=== PATIENT | female | born 1935 | race Caucasian/White ===

== ENCOUNTER 2021-11-17 10:10 | Outpatient (CLI) | payer MEDICARE ==
[~2021-11-17 10:10] MED LIST: AMLO10TA13 PO; ATOR20TA66 PO; iohexol 350MG/ML 100ml bottle IV ONE
[2021-11-17 11:11] LABS: BASOPHILS % (AUTO) 0.8 % (0-1); EOSINOPHILS # (AUTO) 0.1 X10'3 (0-0.9); EOSINOPHILS % (AUTO) 1.3 % (0-6); HEMATOCRIT 30.5 % (35.0-45.0); LYMPHOCYTES # (AUTO) 0.7 X10'3 (1.1-4.8); LYMPHOCYTES % (AUTO) 15.2 % (21-51); MEAN CORPUSCULAR HGB CONC 32.8 g/dL (33.0-36.5); MEAN CORPUSCULAR VOLUME 79.3 FL (78-98); MEAN PLATELET VOLUME 8.4 FL (7.4-10.4); MONOCYTES # (AUTO) 0.4 X10'3 (0-0.9); NEUTROPHILS # (AUTO) 3.4 X10'3 (1.8-7.7); NEUTROPHILS % (AUTO) 73.7 % (42-75); PLATELET COUNT 216 X10'3 (140-440); RED BLOOD COUNT 3.85 X10'6 (4.20-5.60); WHITE BLOOD COUNT 4.6 X10'3 (4.5-11.0)
[2021-11-17 11:22] LABS: APTT 28 SECONDS (22-32)
[2021-11-17 11:24] LABS: ALANINE AMINOTRANSFERASE 16 U/L (12-78); ALBUMIN 3.6 G/DL (3.4-5.0); ALBUMIN/GLOBULIN RATIO 1.1 (1.1-1.5); ALKALINE PHOSPHATASE 60 IU/L (46-116); ANION GAP 9 (8-16); ASPARTATE AMINO TRANSFERASE 15 U/L (10-37); BILIRUBIN,TOTAL 0.4 MG/DL (0.1-1.0); BLOOD UREA NITROGEN 17 MG/DL (7-18); BUN/CREATININE RATIO 25.8 (6.6-38.0); CALCIUM 8.8 MG/DL (8.5-10.1); CHLORIDE 101 MMOL/L (99-107); CREATININE 0.66 MG/DL (0.40-0.90); GLUCOSE 105 MG/DL (70-104); POTASSIUM 4.1 MMOL/L (3.5-5.1); SODIUM 136 MMOL/L (135-145); TOTAL CARBON DIOXIDE 26.1 MMOL/L (24-32); TOTAL PROTEIN 6.9 G/DL (6.4-8.2); eGFR 85 ML/MIN
== END 2021-11-17 23:59 | disposition home or self-care (01) ==
LOC: RAD 10:10
PROVIDERS: ATTEND Internal Medicine Cardiovascular Disease
DX: Z01.818 Encounter for other preprocedural examination (principal); J98.11 Atelectasis; K80.20 Calculus of gallbladder without cholecystitis without obstruction; I70.0 Atherosclerosis of aorta; I25.10 Atherosclerotic heart disease of native coronary artery without angina pectoris; I70.1 Atherosclerosis of renal artery; I70.8 Atherosclerosis of other arteries; M43.8X5 Other specified deforming dorsopathies, thoracolumbar region; M53.3 Sacrococcygeal disorders, not elsewhere classified; I35.0 Nonrheumatic aortic (valve) stenosis; I65.29 Occlusion and stenosis of unspecified carotid artery; Z79.899 Other long term (current) drug therapy
CPT/HCPCS: 36415; 71046; 71275; 74174; 80053; 85025; 85610; 85730; 87811; 94010; 94727; 94729; J3490; Q9967

== ENCOUNTER 2022-01-04 06:25 | Inpatient (IN) | payer MEDICARE ==
[2021-12-27 15:03] LABS: BASOPHILS % (AUTO) 0.8 % (0-1); LYMPHOCYTES # (AUTO) 0.9 X10'3 (1.1-4.8); LYMPHOCYTES % (AUTO) 19.3 % (21-51); MEAN CORPUSCULAR HEMOGLOBIN 26.7 PG (27.0-31.0); MEAN CORPUSCULAR HGB CONC 33.8 g/dL (33.0-36.5); MEAN CORPUSCULAR VOLUME 79.1 FL (78-98); MEAN PLATELET VOLUME 7.9 FL (7.4-10.4); MONOCYTES # (AUTO) 0.4 X10'3 (0-0.9); MONOCYTES % (AUTO) 8.6 % (2-12); NEUTROPHILS # (AUTO) 3.2 X10'3 (1.8-7.7); NEUTROPHILS % (AUTO) 70.3 % (42-75); PRE OP HEMATOCRIT 31.5 % (35.0-45.0); PRE OP PLATELET COUNT 196 X10'3 (140-440); RED BLOOD COUNT 3.98 X10'6 (4.20-5.60); RED CELL DISTRIBUTION WIDTH 16.1 % (11.5-14.5)
[2021-12-27 15:05] LABS: PRE OP HEMOGLOBIN 10.6 g/dL (12.0-16.0)
[2021-12-27 15:20] LABS: PRE OP PROTIME 10.3 SECONDS (9.0-12.0)
[2021-12-27 15:23] LABS: ALBUMIN/GLOBULIN RATIO 1.3 (1.1-1.5); ALKALINE PHOSPHATASE 59 IU/L (46-116); BLOOD UREA NITROGEN 18 MG/DL (7-18); BUN/CREATININE RATIO 23.4 (6.6-38.0); CALCIUM 8.9 MG/DL (8.5-10.1); CHLORIDE 102 MMOL/L (99-107); CREATININE 0.77 MG/DL (0.40-0.90); PRE OP ALT 16 U/L (30-65); PRE OP ANION GAP 7 (8-16); PRE OP AST 16 U/L (10-37); PRE OP BILIRUB, TOTAL 0.3 MG/DL (0.0-1.0); PRE OP GLUCOSE 114 MG/DL (70-104); PRE OP POTASSIUM 3.7 MMOL/L (3.4-5.1); PRE OP SODIUM 137 MMOL/L (135-145); TOTAL CARBON DIOXIDE 27.9 MMOL/L (24-32); eGFR 71 ML/MIN
[2021-12-27 16:10] LABS: COLOR,URINE YELLOW (Yellow); GLUCOSE, URINE NEGATIVE (Neg); KETONES,URINE TRACE mg/dl (Neg); LEUKOCYTE ESTERASE ,URINE NEGATIVE (Neg); NITRITES, URINE NEGATIVE (Neg); OCCULT BLOOD,URINE TRACE-INTACT (Neg); PROTEIN,URINE NEGATIVE (Neg); UROBILINOGEN,URINE 0.2 E.U/dL (0.2-1.0)
[2021-12-27 16:15] LABS: UA COLLECTION TYPE CLN CATCH MIDSTREAM
[2021-12-27 16:16] LABS: CLARITY,URINE SLIGHTLY CLOUDY (Clear)
[2021-12-27 16:17] LABS: SQUAMOUS EPITHELIAL CELL,UR MANY /LPF (FEW)
[2021-12-27 16:19] LABS: WBC,URINE 0-4 /HPF (0-4)
[2021-12-27 16:20] LABS: BACTERIA,URINE FEW /HPF (Neg)
[2022-01-04] VITALS (23 sets, daily range): BP systolic 113–164; BP diastolic 52–92
[~2022-01-04] VITALS: Ht 162.6 cm; Wt 50.3 kg
[~2022-01-04 06:25] MED LIST changes: +LIDOcaine 1%/PF 5ML 10 MG/ML VIAL ONE; +OMEP40CA21 PO; +aspirin 325mg tablet, delayed-release (Ecotrin) PO ONE; +ceFAZolin inj. 2,000 MG in dextrose 5%-water 100 ML IV ONE; +dexamethasone sod phosphate 4mg/ml inj. ONE; +famotidine 20mg tablet PO ONE; +fentaNYL/PF 50MCG/1 ML 2ML syringe ONE; -iohexol 350MG/ML 100ml bottle IV ONE; +ketorolac trometh. 30mg/ml inj. ONE; +meperidine/PF 25mg/ml syringe ONE; +midazolam 1 mg/ML 2ml injection ONE; +nitroPRUSSIDE (NIPRIDE) (200MCG/ML) 100ML Drip IV SCH; +ondansetron/PF 4mg/2ml inj IV PRN; +ondansetron/PF 4mg/2ml inj ONE; +phenylephrine inj 50 MG in normal saline 250ml IV solN IV SCH; +propofol inj 20 ML IV ONE; +protamine sulfate 10mg/ml inj. ONE; +ringers solution, lacted 1,000 ML IV SCH; +vancomycin/NS 1 GM in NS 250 ML IV ONE
[2022-01-04] MEDS ORDERED: iohexol 350MG/ML 100ml bottle IV ONE (08:22)
[2022-01-04] MEDS ORDERED: heparin 1,000 UNITS/NS 500ml 1,500 ML ONE (08:22)
[2022-01-04] MEDS ORDERED: LIDOcaine 1%/PF 5ML 10 MG/ML VIAL ONE ×2 (08:22)
[2022-01-04] MEDS ORDERED: midazolam 1 mg/ML 2ml injection ONE (08:32)
[2022-01-04] MEDS ORDERED: fentaNYL/PF 50MCG/1 ML 2ML syringe ONE (08:32)
[2022-01-04] MEDS ORDERED: propofol inj 20 ML IV ONE ×2 (08:44)
[2022-01-04] MEDS ORDERED: amLODIPine 5mg tablet PO SCH (09:38)
[2022-01-04] MEDS ORDERED: ondansetron/PF 4mg/2ml inj IV PRN ×2 (10:05→10:10)
[2022-01-04] MEDS ORDERED: labetalol 20mg/4ml (5mg/ml) syringe IV PRN ×2 (10:05→10:10)
[2022-01-04] MEDS ORDERED: acetaminophen 325mg tablet PO PRN (10:05)
[2022-01-04] MEDS ORDERED: MESSAGE TO PHARMACY PO ONE (10:05)
[2022-01-04] MEDS ORDERED: DEXTROSE 15 GM of carb/4 tabs (each vial/BOTTLE has 4 tablets) PO PRN ×2 (10:05)
[2022-01-04] MEDS ORDERED: glucagon, human recombinant 1mg kit SUBCUT PRN (10:05)
[2022-01-04] MEDS ORDERED: docusate sod 100mg capsule PO PRN (10:05)
[2022-01-04] MEDS ORDERED: dextrose 50%-water 50ml dispensing syringe IV PRN ×2 (10:05)
[2022-01-04] MEDS ORDERED: hydrALAZINE 20mg/ml inj. IV PRN ×2 (10:05→10:10)
[2022-01-04] MEDS ORDERED: ALPRAZolam 0.25mg tablet PO PRN (10:05)
[2022-01-04] MEDS ORDERED: diphenhydrAMINE 25mg capsule PO PRN (10:05)
[2022-01-04] MEDS ORDERED: insulin Lispro (HumaLOG) vial - multi-dose SQ SCH (10:05)
[2022-01-04] MEDS ORDERED: pantoprazole 40mg Tablet.DR PO PRN (10:05)
[2022-01-04] MEDS ORDERED: proCHLORperazine 10 MG/2 ml inj IV PRN ×2 (10:05→10:10)
[2022-01-04] MEDS ORDERED: ringers solution, lacted 1,000 ML IV SCH (10:10)
[2022-01-04] MEDS ORDERED: meperidine/PF 25mg/ml syringe IV PRN ×3 (10:10)
[2022-01-04] MEDS ORDERED: acetaminophen 1,000mg/100ml IV 100 ML IV PRN (10:10)
[2022-01-04] MEDS ORDERED: morphine 4 MG/ML inj SYRINge IV PRN (10:10)
[2022-01-04] MEDS ORDERED: morphine 2 MG/ML inj. syringe IV PRN (10:10)
[2022-01-04] MEDS ORDERED: ASPI81TA53 PO (12:23)
[2022-01-04] MEDS: sod chloride 0.9% 10ml flush syringe IV SCH (16:00)
[2022-01-04] MEDS: ceFAZolin 1GM/D5W- ADD-VANTAGE 50 ML IV SCH (17:30)
[2022-01-04] MEDS: normal saline 1000ml 1,000 ML IV SCH ×2 (17:32→19:47)
[2022-01-04] MEDS: vancomycin/NS 1 GM ADD-VANTAGE 250 ML IV SCH (19:32)
[2022-01-04] MEDS ORDERED: atorvastatin 20mg tablet PO SCH (21:00)
[2022-01-04] MEDS ORDERED: insulin glargine (Lantus) pen - multi-dose SQ SCH (21:00)
[2022-01-05] MEDS: ceFAZolin 1GM/D5W- ADD-VANTAGE 50 ML IV SCH ×2 (00:18→08:54)
[2022-01-05] MEDS: sod chloride 0.9% 10ml flush syringe IV SCH ×2 (00:18→08:00)
[2022-01-05 02:00] VITALS: BP 124/66
[2022-01-05] MEDS: normal saline 1000ml 1,000 ML IV SCH (05:06)
[2022-01-05 06:19] LABS: BASOPHILS % (AUTO) 0.4 % (0-1); HEMATOCRIT 29.9 % (35.0-45.0); HEMOGLOBIN 10.1 g/dl (12.0-16.0); LYMPHOCYTES # (AUTO) 0.5 X10'3 (1.1-4.8); LYMPHOCYTES % (AUTO) 12.2 % (21-51); MEAN CORPUSCULAR HEMOGLOBIN 27.4 PG (27.0-31.0); MEAN CORPUSCULAR HGB CONC 33.9 g/dL (33.0-36.5); MEAN CORPUSCULAR VOLUME 80.9 FL (78-98); MEAN PLATELET VOLUME 7.9 FL (7.4-10.4); MONOCYTES # (AUTO) 0.5 X10'3 (0-0.9); MONOCYTES % (AUTO) 12.1 % (2-12); NEUTROPHILS # (AUTO) 3.2 X10'3 (1.8-7.7); NEUTROPHILS % (AUTO) 74.3 % (42-75); PLATELET COUNT 134 X10'3 (140-440); RED BLOOD COUNT 3.69 X10'6 (4.20-5.60); RED CELL DISTRIBUTION WIDTH 17.3 % (11.5-14.5); WHITE BLOOD COUNT 4.3 X10'3 (4.5-11.0)
[2022-01-05 06:42] LABS: ALANINE AMINOTRANSFERASE 16 U/L (12-78); ALBUMIN 3.3 G/DL (3.4-5.0); ALBUMIN/GLOBULIN RATIO 1.2 (1.1-1.5); ALKALINE PHOSPHATASE 55 IU/L (46-116); ANION GAP 11 (8-16); ASPARTATE AMINO TRANSFERASE 21 U/L (10-37); BILIRUBIN,TOTAL 0.3 MG/DL (0.1-1.0); BLOOD UREA NITROGEN 7 MG/DL (7-18); BUN/CREATININE RATIO 12.3 (6.6-38.0); CALCIUM 8.5 MG/DL (8.5-10.1); CHLORIDE 103 MMOL/L (99-107); CREATININE 0.57 MG/DL (0.40-0.90); GLUCOSE 90 MG/DL (70-104); SODIUM 139 MMOL/L (135-145); TOTAL CARBON DIOXIDE 24.7 MMOL/L (24-32); eGFR > 90 ML/MIN
[2022-01-05] MEDS ORDERED: POTASSIUM BICARB 20meq eff tab 20 MEQ TABLET.EFF PO PRN ×2 (07:30)
[2022-01-05] MEDS ORDERED: magnesium 4gm in 100ml NS 100 ML IV PRN (07:30)
[2022-01-05] MEDS ORDERED: magnesium 2GM in 50ml NS 50 ML IV PRN (07:30)
[2022-01-05] MEDS ORDERED: magnesium Cl slow-release 64mg tablet PO PRN (07:30)
[2022-01-05] MEDS ORDERED: potassium CL 10mEq/100ml bag 100 ML IV PRN (07:30)
[2022-01-05] MEDS ORDERED: pantoprazole 40mg Tablet.DR PO SCH (08:00)
[2022-01-05] MEDS ORDERED: K and/or MAG REPLACEMENT MC SCH (08:00)
[2022-01-05] MEDS ORDERED: aspirin 81mg tab.chew PO SCH (08:30)
[2022-01-05] MEDS: vancomycin/NS 1 GM ADD-VANTAGE 250 ML IV SCH (11:52)
== END 2022-01-05 15:56 | disposition home or self-care (01) | DRG 266 ==
LOC: PAS IN 06:25 → PCU 3S 12:22
PROVIDERS: ADMIT Internal Medicine Cardiovascular Disease; ATTEND Internal Medicine Cardiovascular Disease
PROC: B41D1ZZ Fluoroscopy of Aorta and Bilateral Lower Extremity Arteries using Low Osmolar Contrast (ICD-10-PCS; 2022-01-04)
PROC: 02RF38Z Replacement of Aortic Valve with Zooplastic Tissue, Percutaneous Approach (ICD-10-PCS; principal; 2022-01-04 08:24)
DX: I35.2 Nonrheumatic aortic (valve) stenosis with insufficiency (principal); Z00.6 Encounter for examination for normal comparison and control in clinical research program; K21.9 Gastro-esophageal reflux disease without esophagitis; I50.33 Acute on chronic diastolic (congestive) heart failure; E78.5 Hyperlipidemia, unspecified; I10 Essential (primary) hypertension; I11.0 Hypertensive heart disease with heart failure
CPT/HCPCS: 33361; 36415; 71045; 71046; 76937; 80053; 81001; 82948; 83036; 83735; 83880; 85025; 85347; 85610; 85730; 86885; 86900; 86901; 86920; 87081; 87811; 93005; 93308; A4618; A6258; A6449; C1756; C1760; C1769; C1894; G0378; J0360; J0690; J1100; J1644; J1815; J1885; J2175; J2250; J2370; J2405; J2704; J2720; J3010; J3370; J3490; J7030; J7040; J7050; J7060; J7120; Q9967